=== PATIENT | female | born 1995 | race Caucasian/White ===

== ENCOUNTER 2018-08-03 22:54 | Inpatient (IN) | payer MEDICAID, OTHER ==
[2018-08-04] MEDS ORDERED: MAG HYDROX/AL HYDROX/SIMETH 30 ML CUP PO PRN (00:42)
[2018-08-04] MEDS ORDERED: MAGNESIUM HYDROXIDE 2,400 MG/10 ML CUP PO PRN (00:42)
[2018-08-04] MEDS ORDERED: ACETAMINOPHEN TAB 325 MG TAB PO PRN (00:42)
--- NOTE | 2018-08-04 04:03 | P.HPIM ---
History of Present Illness H&P Date: 08/04/18 The patient is a 23 yo F with PMH of depression was BIBEMS after a suicide attempt via ingestion of an unknown amount of xanax. The patient was seen in the [facility]. She notes that she had been going through a lot recently and she believes the triggering event was her friend committing suicide a week ago. She notes that she took the pills roughly 24 hours ago and slept for nearly 18 hours straight. She otherwise denied any active complaints including chest pain , SOB, nausea, vomiting, dizziness, weakness, numbness, diarrhea, constipation, abdominal pain, fever, or chills. She denied any further suicidal or homicidal ideation. Review of Systems Pertinent positives and negatives as discussed in HPI, a complete review of systems was performed and all other systems are negative. Medications and Allergies Home Medications Medication Instructions Recorded Confirmed Type No Known Home Medications 08/04/18 08/04/18 History Allergies Allergy/AdvReac Type Severity Reaction Status Date / Time No Known Allergies Allergy Verified 08/04/18 00:38 Physical Exam Vitals: Vital Signs Temp Pulse Resp BP Pulse Ox 08/03/18 23:18 97.8 F 102 H 16 126/78 98 Intake and Output 08/03/18 08/03/18 08/04/18 14:59 22:59 06:59 Other: Weight 55.962 kg General: [non toxic], [no distress], [appears at stated age], [normal weight] Derm: [no unusual rashes/lesions] [no unusual ecchymoses], [warm], [dry] Head: [atraumatic], [normocephalic], [symmetric] Eyes: [EOMI], [no lid lag], [anicteric sclera], [pupils equal round reactive to light] ENT: [Nose and ears atraumatic], [no thrush], [no pharyngeal erythema] Neck: [No thyromegaly], [no cervical lymphadenopathy], [trachea midline], [ supple] Mouth: [no lip lesion], [mucus membranes moist] Cardiovascular: [S1S2 reg], [no murmur], [positive posterior tibial pulse bilateral], [no edema], [capillary refill less than 2 seconds] Lungs: [CTA bilateral], [no rhonchi, no rales] , [no accessory muscle use] Abdominal: [soft], [ nontender to palpation], [no guarding], [no appreciable organomegaly], [normal bowel sounds] Ext: [no gross muscle atrophy], [muscle strength 5 out of 5 in all 4 extremities grossly], [no contractures], Neuro: [ CN II-XI grossly intact], [light touch intact all 4 extremities], [ finger to nose within normal limits], Psych: [Alert], [oriented], [appropriate affect] Assessment and Plan Plan: Depression w/ suicidal ideation -As per psychiatry Xanax overdose -Patient presently stable -Monitor for signs of withdrawal Tobacco abuse -Nicotine patch as needed Thank you for allowing us to participate in the care of this patient. We will follow peripherally. Do not hesitate to contact us with questions. Someone can be reached from the [facility] hospitalist group at all hours of the day at [phone].
[2018-08-04] MEDS: NICOTINE 14MG/24HR PATCH TRANSDERM SCH (08:59)
[2018-08-04 11:19] LABS: ALT 33 U/L (9-52); AST 29 U/L (14-36); Albumin 4.4 g/dL (3.5-5.0); Alkaline Phosphatase 50 U/L (38-126); Anion Gap 9 mmol/L; Bilirubin, Delta 0.3 mg/dL (0.0-0.2); Bilirubin,Unconjugated 0.9 mg/dL (0.0-1.1); Blood Urea Nitrogen 10 mg/dL (7-17); Calcium 9.3 mg/dL (8.4-10.2); Carbon Dioxide 26 mmol/L (22-30); Chloride 106 mmol/L (98-107); Cholesterol 130 mg/dL (<200); Glucose 100 mg/dL (74-99); HDL Cholesterol 36 mg/dL (40-60); LDL Cholesterol,Calculated 83 mg/dL (0-99); Potassium 4.1 mmol/L (3.5-5.1); Sodium 141 mmol/L (137-145); Total Bilirubin 1.2 mg/dL (0.2-1.3); Triglycerides 55 mg/dL (<150)
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
[2018-08-04 18:58] LABS: Hemoglobin A1C 4.9 % (4.0-6.0)
[2018-08-04] MEDS: LORazepam 1 MG TAB PO PRN (23:46)
[2018-08-05] MEDS ORDERED: VORTIOXETINE HYDROBROMIDE 10 MG TABLET PO SCH (09:00)
[2018-08-05] MEDS: NICOTINE 14MG/24HR PATCH TRANSDERM SCH (09:04)
[2018-08-05 10:10] VITALS: BMI 24.9
--- NOTE | 2018-08-05 12:19 | P.PN ---
Progress Note - Text Interval history: The patient is found in her room she follows me to an interview room. She indicates her mood is okay today. Her mother visited last evening but she ended up asking her mother to leave as they began to argue. She continues to experience grief related to the loss of her close friend. She indicates having some trouble sleeping last night until she took an Ativan. She reports that she vomited this morning about 45 minutes after taking the Trintellix. She states he could be sequela from her overdose still or just taking the medicine on an empty stomach and she typically does not eat breakfast. We discussed changing the timing total after lunch and she is agreeable. Mental status exam: The patient is a female appearing her stated age. She is dressed in her own clothing hygiene grooming adequate. Eye contact is appropriate. Speech is fluent spontaneous nonpressured. She reports feeling safe in the hospital she is endorsing no acute suicidal ideation intent or plan. She is reporting no homicidal ideation. She is endorsing no auditory or visual hallucinations. Her mood continues to be sad at times due to grief. She does express some intermittent anxiety symptoms. She demonstrates no verbal or physical aggressiveness she demonstrates. She is oriented to person place and date. Plan: The patient will continue on the Trintellix we will change the dosing until after lunch starting tomorrow. She is encouraged to fully participate in the milieu. We will monitor her for safety. We will have social work try to set up a support meeting.
[2018-08-05 19:11] LABS: Appearance,Urine Cloudy (Clear); Bacteria,Urine Rare /hpf; Bilirubin,Urine Negative (Negative); Blood,Urine Negative (Negative); Color,Urine Yellow; Glucose,Urine (UA) Negative (Negative); Ketones,Urine Negative (Negative); Leukocyte Esterase,Urine Negative (Negative); Mucus,Urine Moderate /hpf; Nitrite,Urine Negative (Negative); PH, Urine 6.5 (5.0-8.0); Protein,Urine Trace (Negative); RBC,Urine 2 /hpf (0-5); Specific Gravity,Urine 1.027 (1.001-1.035); Squamous Epithelial Cell,Urine 10 /hpf (0-4); WBC,Urine 1 /hpf (0-5)
[2018-08-05] MEDS: LORazepam 1 MG TAB PO PRN (20:47)
[2018-08-06] MEDS: VORTIOXETINE HYDROBROMIDE 10 MG TABLET PO SCH (09:44)
--- NOTE | 2018-08-06 10:58 | P.PN ---
Progress Note - Text Interval history: The patient is found in the hallway she follows me to an interview room. She reports that her mood does seem to be better she feels mostly bored. She indicates she slept last night. She is requesting that her older sisters come for the family meeting and she feels that will be more supportive and more beneficial in helping her formulate a plan for discharge. She is looking forward to participating in her [employer] competition this . She describes other future oriented goals. We reviewed the Trintellix and she will take the second dose today we will monitor for any nausea. Mental status exam: The patient is alert she presents with adequate hygiene grooming. Eye contact is appropriate. She is engaging in conversation is pleasant and cooperative. Speech is fluent spontaneous nonpressured. She reports her mood is better. She is reporting no acute suicidal or homicidal ideation intent or plan. She is endorsing no auditory or visual hallucinations or specific delusions. There is no observed evidence of psychosis. She demonstrates no tangential thinking loose associations or flight of ideas. She does not appear hypomanic or manic. Insight and judgment improving. Plan: The patient will continue on the Trintellix is written we will monitor for any side effects as we initiate this medication. Social work is asked to arrange a support meeting involving her sisters. We will monitor for safety and encourage full participation milieu. She may be appropriate for discharge in the next 1-2 days depending on her clinical progress.
[2018-08-06] MEDS: LORazepam 1 MG TAB PO PRN (21:25)
[2018-08-07 06:38] VITALS: BP 121/76; PULSE 77; RESP 14; TEMP 97.7
[2018-08-07] MEDS: VORTIOXETINE HYDROBROMIDE 10 MG TABLET PO SCH (11:03)
--- NOTE | 2018-08-07 11:21 | P.DS ---
Providers Date of admission: 08/03/18 23:15 Expected date of discharge: 08/07/18 Attending physician: Gabriel Mast Consults: 08/04/18 00:42 Consult Physician Routine Consulting Provider: Alan Gilliam Consult Reason/Comments: For H & P for Medical Follow Up Do you want consulting provider notified?: Yes Primary care physician: Stated None - Discharge Diagnosis(es) (1) Major depressive disorder, recurrent severe without psychotic features Current Visit: Yes Status: Acute Priority: High Hospital Course: Brief summary of admission note: This patient is a 23-year-old single female who presented as a direct admission from [facility] after suicide attempt via Xanax overdose. The patient was petitioned by a nurse at that hospital which indicated the patient had other suicide attempts. The patient described having a rough week and it was noted the patient was using more alcohol than usual. Upon evaluation the patient informed me that a very close friend of hers committed suicide via gunshot wound to his head 6 days prior. She found this to be very overwhelming. She admits that while intoxicated with alcohol she took approximately 20 0.25 mg Xanax tablets. For full details please refer to my psychiatric evaluation dated 08/04/2018. Summary of hospital course: The patient was admitted to the mental health unit she signed in voluntarily. We reviewed her presenting symptoms and treatment options. We reviewed past medication trials and decided to use Trintellix 10 mg daily. We discussed potential benefits and side effects of this medication and her questions were answered. Ativan was used as needed for acute anxiety. The patient was seen by internal medicine for routine history and physical exam. Social work complete a biopsychosocial assessment. Social work help to support meetings the first involving her 2 sisters and the second involving her sister and her mother. It was determined that the patient would reside with her mother upon discharge. Family members felt that the patient was stable for discharge in terms of acute safety risk. The patient states that she does not have an alcohol problem she does not require inpatient chemical dependency treatment nor does she want to take a medication to reduce cravings for alcohol use. She feels that she would easily be able to abstain from alcohol during this most recent medication trial. Mental status exam: The patient is alert she is pleasant cooperative she is dressed in her own clothing hygiene grooming are good. Eye contact is good speech is fluent spontaneous nonpressured. She indicates her mood is better. She denies having any suicidal or homicidal ideation intent or plan. She reports no auditory or visual hallucinations or any specific delusions and there is no observed evidence of psychosis. She demonstrates no tangential thinking loose associations or flight of ideas. There is no evidence of hypomania or jr. She demonstrates no verbal or physical aggressiveness. Insight and judgment are grossly intact. She is oriented to person place and date. Impressions 1. Major depressive disorder recurrent severe without psychosis, anxiety and specified, bereavement Plan: The patient will be discharged from the mental health unit today to reside with her mother. Social work will arrange for outpatient mental health follow-up. The patient will be continued on Trintellix 10 mg daily. She is instructed to abstain from any use of alcohol marijuana or any illicit drug and disease will destabilize her mood and elevate her safety risk. There is no imminent safety risk at this time she is appropriate for transition to outpatient care. She is instructed to return to the hospital with any acute safety concerns. Patient Condition at Discharge: Stable Plan - Discharge Summary Discharge Rx Participant: No New Discharge Prescriptions: New Vortioxetine Hydrobromide [Trintellix] 10 mg PO Q24H #30 tablet Discontinued Citalopram Hydrobromide [CeleXA] 20 mg PO DAILY buPROPion HCL [Wellbutrin XL] 150 mg PO DAILY Amitriptyline HCl 25 mg PO HS Discharge Medication List Vortioxetine Hydrobromide [Trintellix] 10 mg PO Q24H #30 tablet 08/07/18 [Rx] Activity/Diet/Wound Care/Special Instructions: Remove all weapons and firearms from the home; Refrain from street drugs and alcohol; Diet and activity as tolerated; Follow-up with your PCP in 1-2 days; Keep all scheduled follow-up appointments for continuity of care; Take all meds. as prescribed; When you are in need of prescription refills, contact either your PCP or your aftercare psychiatrist; If you have any problems or worsen, call the Crisis Line at or go to the nearest for a psychiatric evaluation.
== END 2018-08-07 15:20 | disposition home or self-care (01) | DRG 885 ==
LOC: 3MHU 23:15
PROVIDERS: ADMIT Psychiatry & Neurology Psychiatry; ATTEND Psychiatry & Neurology Psychiatry
DX: F33.2 Major depressive disorder, recurrent severe without psychotic features (principal); Z72.0 Tobacco use; F41.9 Anxiety disorder, unspecified; Z91.5 Personal history of self-harm; Z63.4 Disappearance and death of family member; Z79.899 Other long term (current) drug therapy
CPT/HCPCS: 80053; 80061; 81001; 82248; 83036; 84443